=== PATIENT | female | born 1975 | race Hispanic/Latino ===

== ENCOUNTER → 2018-11-07 | Outpatient (CLI) | payer BC ==
--- NOTE | 2018-11-07 10:52 | MRI ---
Study: MRI of the Left Shoulder. Indication: LEFT SHOULDER PAIN Technique: Multiplanar, multi sequence MRI of the left shoulder was obtained without intravenous contrast. Comparison: None. Findings: Mild AC joint osteoarthritis. Type I acromion mild lateral downsloping. Small volume subacromial/subdeltoid bursal fluid. Supraspinatus and infraspinatus tendinosis. Subscapularis and teres minor tendons intact. Rotator cuff musculature normal without atrophy, fatty infiltration, or intramuscular edema. Long head biceps tendon intact. Circumferential labral truncation noted. No fluid-filled labral tear identified. No acute fracture. Minimal glenohumeral joint osteoarthritis. Thickening and edema inferior glenohumeral ligament which can be seen with adhesive capsulitis. Impression: Supraspinatus and infraspinatus tendinosis without fluid-filled tear. Circumferential labral truncation noted. Minimal glenohumeral joint osteoarthritis. Adhesive capsulitis. Mild AC joint osteoarthritis. Small-volume subacromial/subdeltoid bursal fluid. Electronically signed by: Jovon Tinoco MD 11/07/2018 10:51 AM [facility]
== END ==
LOC: MRI 09:11
PROVIDERS: ATTEND Family Medicine
DX: M19.012 Primary osteoarthritis, left shoulder (principal); M75.32 Calcific tendinitis of left shoulder; M25.512 Pain in left shoulder

== ENCOUNTER 2019-04-23 10:23 | Emergency (ER) | payer BC ==
[2019-04-23] MEDS ORDERED: KETOROLAC TROMETHAMINE INJ 30 MG/ML VIAL IV ONE (10:32)
[2019-04-23] MEDS ORDERED: TETANUS,DIPHTHERIA,PERTUSSIS 1 EA SYG IM ONE (10:33)
[2019-04-23 10:34] VITALS: TEMP 97.9
--- NOTE | 2019-04-23 10:36 | ED.PDOC ---
History of Present Illness - General Chief Complaint: Upper Extremity Injury Stated Complaint: L wrist injury Time Seen by Provider: 04/23/19 10:31 Source: patient Exam Limitations: no limitations - History of Present Illness Initial Comments: patient comes in with injury to her left knee and wrist after a fall. Patient was outside mowing her lawn and her dogs knocked her over and she landed on that left side causing severe pain and deformity to the wrist with some pain at the knee. She was able to weight-bear directly after the injury. Patient does have RA but was in normal health prior to this injury. She has had a partial hysterectomy. Occurred: just prior to arrival Pain - Upper Extremity: severe: Wrist, left Method of Injury: fell Improving Factors: nothing Worsening Factors: immobilization Allergies/Adverse Reactions: Allergies hibiclens Allergy (Uncoded 04/23/19 11:28) Home Medications: Ambulatory Orders Acetaminophen W/ Codeine [Tylenol W/ CODEINE #3] 1 ea PO QID PRN #15 04/23/19 Hydroxychloroquine Sulfate [Plaquenil] 200 mg PO DAILY 04/23/19 Vit W/ Ferrous Fumara [] 1 tab PO DAILY 04/23/19 Review of Systems - Review of Systems Constitutional: States: no symptoms reported. Denies: chills, fever EENTM: States: no symptoms reported Respiratory: States: no symptoms reported. Denies: cough, short of breath Cardiology: States: no symptoms reported. Denies: chest pain, palpitations Gastrointestinal/Abdominal: States: no symptoms reported Musculoskeletal: States: see HPI Family Medical History - Family History Mother Family History: No Known Living Status: Still Living Physical Exam - Physical Exam General Appearance: Alert, Anxious Eyes, Ears, Nose, Throat Exam: PERRL/EOMI Neck: non-tender Cardiovascular/Respiratory: regular rate, rhythm, no M/R/G, normal peripheral pulses, normal breath sounds, no respiratory distress Abdominal Exam: non-tender Elbow/Forearm Exam: normal inspection, bone tenderness - to proximal third of the radius with no deformity Wrist Exam: bone tenderness, deformity, ecchymosis, limited ROM Hand Exam: normal inspection, no evidence of injury Neuro/Tendon: normal sensation Mental Status: alert, oriented x 3 Progress - Results/Orders Results/Orders: Patient Name: RUI BENAVIDES Gender: Female Date of : 1975 Referring Physician: SAMI BOUCHER Organization: [facility] Accession Number: [id number] Requested Date: April 23, 2019 10:32 Report Status: Final Requested Procedure: 1 Procedure Description: Wrist,Left 2 Views Modality: CR Findings Reporting MD: Italo Borrero MD: Not available Dictation Time: Procedures Rn: Not available Project Developer Date: PROCEDURE: XR Left Wrist, 2 Views CLINICAL INDICATION: The patient is 43 years old and is Female; trauma grossly deformed wrist TECHNIQUE: Frontal and lateral views of the left wrist. COMPARISON: No relevant prior studies available. FINDINGS: BONES/JOINTS: There is positive ulnar variance. There is a mildly dorsally angulated, comminuted intra-articular acute mildly displaced fracture through the distal radius. The scapholunate distance is intact. The scaphoid is intact. The joint spaces are maintained. SOFT TISSUES: There is soft tissue swelling about the wrist. There is NO radiopaque foreign body. IMPRESSION: 1. There is soft tissue swelling about the wrist. 2. There is positive ulnar variance. Patient Name: RUI BENAVIDES Gender: Female Date of : 1975 Referring Physician: SAMI BOUCHER Organization: [facility] Accession Number: [id number] Requested Date: April 23, 2019 10:32 Report Status: Final Requested Procedure: 1 Procedure Description: Forearm,Left Modality: CR Findings Reporting MD: Italo Borrero MD: Not available Dictation Time: Procedures Rn: Not available Project Developer Date: PROCEDURE: XR Left Forearm, 2 Views CLINICAL INDICATION: The patient is 43 years old and is Female; trauma grossly deformed wrist TECHNIQUE: Frontal and lateral views of the left forearm. COMPARISON: No relevant prior studies available. FINDINGS: BONES/JOINTS: There is a mildly comminuted, impacted, mildly displaced intra-articular fracture through the distal radius, with mild dorsal angulation. No other fracture or dislocation identified in the LEFT forearm. SOFT TISSUES: No radiopaque foreign body. No significant soft tissue swelling noted. IMPRESSION: There is a mildly comminuted, impacted, mildly displaced intra-articular fracture through the distal radius, with mild dorsal angulation. Patient Name: RUI BENAVIDES Gender: Female Date of : 1975 Referring Physician: SAMI BOUCHER Organization: [facility] Accession Number: [id number] Requested Date: April 23, 2019 10:32 Report Status: Final Requested Procedure: 1 Procedure Description: Knee,Left 2 or More Views Modality: CR Findings Reporting MD: Italo Borrero Fellow MD: Not available Dictation Time: Procedures Rn: Not available Project Developer Date: PROCEDURE: XR Left Knee, 1 or 2 views CLINICAL INDICATION: The patient is 43 years old and is Female; trauma grossly deformed wrist TECHNIQUE: Frontal and/or lateral views of the left knee. COMPARISON: No relevant prior studies available. FINDINGS: BONES/JOINTS: No fracture or dislocation is identified in the LEFT knee. Tricompartmental joint spaces are maintained. There is no suprapatellar effusion. SOFT TISSUES: No radiopaque foreign body. No significant soft tissue swelling noted. IMPRESSION: No fracture or dislocation is identified in the LEFT knee. Electronically signed by: Italo Borrero MD 04/23/2019 12:01 PM Procedures - Splinting Left Wrist Hand-Made Type: orthoglass Splint: wrist Pre-Proc Neuro Vasc Exam: normal Post-Proc Neuro Vasc Exam: normal Departure - Departure Clinical Impression: Wrist fracture, left Qualifiers: Encounter type: initial encounter Fracture type: closed Qualified Code(s): S62.102A - Fracture of unspecified carpal bone, left wrist, initial encounter for closed fracture Disposition: Discharge to Home or Self Care Departure Forms: ED Discharge - Pt. Copy, Patient Portal Self Enrollment Instructions: DI for Arm Pain Diet: regular diet Referrals: Olu Cabral MD [Primary Care Provider] - 1-2 Weeks Prescriptions: Acetaminophen W/ Codeine [Tylenol W/ CODEINE #3] 1 ea PO QID PRN #15 PRN Reason: Pain Home Medications: Ambulatory Orders Acetaminophen W/ Codeine [Tylenol W/ CODEINE #3] 1 ea PO QID PRN #15 04/23/19 Hydroxychloroquine Sulfate [Plaquenil] 200 mg PO DAILY 04/23/19 Vit W/ Ferrous Fumara [] 1 tab PO DAILY 04/23/19 Additional Instructions: follow up with Dr. Scott (her ortho doctor) in am. Return to ER for severe pain, decreased sensation. Keep splint on until Ortho can evaluate.
[2019-04-23] MEDS ORDERED: MORPHINE SULFATE INJ 10 MG/ML VIAL IV ONE (11:16)
[2019-04-23] MEDS ORDERED: ONDANSETRON INJ 4 MG/2 ML VIAL ONE (11:21)
[2019-04-23] MEDS ORDERED: ONDANSETRON INJ 4 MG/2 ML VIAL IV ONE (11:25)
[2019-04-23] MEDS ORDERED: MIDAZOLAM INJ 5 MG/5 ML VIAL IV ONE (11:36)
--- NOTE | 2019-04-23 12:02 | RAD ---
PROCEDURE: XR Left Forearm, 2 Views CLINICAL INDICATION: The patient is 43 years old and is Female; trauma grossly deformed wrist TECHNIQUE: Frontal and lateral views of the left forearm. COMPARISON: No relevant prior studies available. FINDINGS: BONES/JOINTS: There is a mildly comminuted, impacted, mildly displaced intra-articular fracture through the distal radius, with mild dorsal angulation. No other fracture or dislocation identified in the LEFT forearm. SOFT TISSUES: No radiopaque foreign body. No significant soft tissue swelling noted. IMPRESSION: There is a mildly comminuted, impacted, mildly displaced intra-articular fracture through the distal radius, with mild dorsal angulation. Electronically signed by: Italo Borrero MD 04/23/2019 12:00 PM CDT
--- NOTE | 2019-04-23 12:03 | RAD ---
PROCEDURE: XR Left Knee, 1 or 2 views CLINICAL INDICATION: The patient is 43 years old and is Female; trauma grossly deformed wrist TECHNIQUE: Frontal and/or lateral views of the left knee. COMPARISON: No relevant prior studies available. FINDINGS: BONES/JOINTS: No fracture or dislocation is identified in the LEFT knee. Tricompartmental joint spaces are maintained. There is no suprapatellar effusion. SOFT TISSUES: No radiopaque foreign body. No significant soft tissue swelling noted. IMPRESSION: No fracture or dislocation is identified in the LEFT knee. Electronically signed by: Italo Borrero MD 04/23/2019 12:01 PM CDT
--- NOTE | 2019-04-23 12:05 | RAD ---
PROCEDURE: XR Left Wrist, 2 Views CLINICAL INDICATION: The patient is 43 years old and is Female; trauma grossly deformed wrist TECHNIQUE: Frontal and lateral views of the left wrist. COMPARISON: No relevant prior studies available. FINDINGS: BONES/JOINTS: There is positive ulnar variance. There is a mildly dorsally angulated, comminuted intra-articular acute mildly displaced fracture through the distal radius. The scapholunate distance is intact. The scaphoid is intact. The joint spaces are maintained. SOFT TISSUES: There is soft tissue swelling about the wrist. There is NO radiopaque foreign body. IMPRESSION: 1. There is soft tissue swelling about the wrist. 2. There is positive ulnar variance. Electronically signed by: Italo Borrero MD 04/23/2019 12:03 PM CDT
[2019-04-23 12:46] VITALS: O2SAT 97
--- NOTE | 2019-04-23 12:56 | RAD ---
EXAM DESCRIPTION: Wrist,Left 2 Views CLINICAL HISTORY: 43 years Female post reduction COMPARISON: None TECHNIQUE: AP, lateral and oblique views of the wrist are obtained. FINDINGS: OSSEOUS: There is an acute, comminuted, impacted and intra-articular fracture of the distal radius without significant change in one third with dorsal displacement and 157 degrees angulation at the fracture site resulting in persistent mild deformity. The joint spaces are preserved. No evidence of subluxation or dislocation. There is no evidence of degenerative osteophytosis or sclerosis. There is no evidence of marginal erosive changes to suggest an inflammatory arthritis. SOFT TISSUE: There is soft tissue swelling dorsal to the wrist. No evidence of significant soft tissue calcifications. No radiopaque foreign bodies. IMPRESSION: No significant change in the appearance and alignment of the comminuted distal radial fracture. Remainder of findings as described above. Electronically signed by: Dolores Melissa MD 04/23/2019 12:53 PM CDT
[2019-04-23 13:10] VITALS: BP 143/81
== END 2019-04-23 13:15 | disposition home or self-care (01) ==
LOC: ER 10:23
DX: S52.502A Unspecified fracture of the lower end of left radius, initial encounter for closed fracture (principal); S89.92XA Unspecified injury of left lower leg, initial encounter; M06.9 Rheumatoid arthritis, unspecified; Y93.H2 Activity, gardening and landscaping; Y92.007 Garden or yard of unspecified non-institutional (private) residence as the place of occurrence of the external cause; W54.1XXA Struck by dog, initial encounter; Z88.8 Allergy status to other drugs, medicaments and biological substances; Z23 Encounter for immunization
CPT/HCPCS: 73090; 73100; 73560; 90471; 90715; 94770; J1885; J2250; J2270; J2405

== ENCOUNTER → 2019-04-25 | Outpatient (CLI) | payer BC ==
--- NOTE | 2019-04-25 08:41 | RAD ---
EXAM DESCRIPTION: Wrist,Left 3 Views CLINICAL HISTORY: 43 years, Female, PAIN IN LEFT WRIST COMPARISON: None FINDINGS: Left wrist 3 x-ray views is positive for comminuted fracture of the distal radial epiphysis and metaphysis with slight impaction. The configuration of the fragments is stable compared to the previous study. Fracture line extends into the radiocarpal joint. Distal ulna appears intact. Intact bones of the carpus and metacarpals. Dorsal angulation of the articular surface of the distal radius measures 21 degrees on the present study compared to 29 degrees on previous exam. IMPRESSION: Comminuted fracture of the distal left radius with extension to the radiocarpal joint. Electronically signed by: Esteban Garcias MD 04/25/2019 8:39 AM CDT
== END ==
LOC: RAD 08:10
PROVIDERS: ATTEND Orthopaedic Surgery
DX: S52.502D Unspecified fracture of the lower end of left radius, subsequent encounter for closed fracture with routine healing (principal)

== ENCOUNTER 2019-04-26 05:44 | Day surgery (SDC) | payer BC ==
[2019-04-26] MEDS ORDERED: ceFAZolin SODIUM 1 GM VIAL ONE ×2 (05:46→06:43)
[2019-04-26] MEDS ORDERED: LACTATED RINGERS 1,000 ML ONE (05:46)
[2019-04-26] MEDS ORDERED: SODIUM CHL 0.9% 100ML MINI-BAG 100 ML IVPB ONE (05:47)
[2019-04-26] MEDS ORDERED: LIDOCAINE 1% 50 ML VIAL INJ ONE (06:43)
[2019-04-26] MEDS ORDERED: methylPREDNISolone ACETATE 80 MG/ML VIAL ONE (06:44)
[2019-04-26] MEDS ORDERED: VANCOMYCIN HCL INJ 1,000 MG VIAL IVPB ONE (06:44)
[2019-04-26] MEDS ORDERED: MIDAZOLAM INJ 5 MG/5 ML VIAL ONE (06:50)
[2019-04-26] MEDS ORDERED: fentaNYL CITRATE INJ 50 MCG/ML AMP ONE (06:50)
[2019-04-26] MEDS ORDERED: LACTATED RINGERS 1,000 ML BAG IV ONE (06:50)
[2019-04-26] MEDS ORDERED: KETAMINE HCL 100 MG/ML VIAL ONE (06:51)
[2019-04-26] MEDS ORDERED: DEXAMETHASONE INJ 10 MG/ML VIAL ONE (07:00)
[2019-04-26] MEDS ORDERED: raNITIdine HCL INJ 25 MG/ML VIAL ONE (07:00)
[2019-04-26] MEDS ORDERED: PROPOFOL 200 MG/20 ML VIAL IV ONE (07:00)
[2019-04-26] MEDS ORDERED: LIDOCAINE 1% 10 ML VIAL INJ ONE (07:00)
[2019-04-26] MEDS: BUPIVACAINE 0.25% W/EPI 50 ML VIAL INJ ONE ×2 (07:45→07:48)
[2019-04-26] MEDS ORDERED: HYDROmorphone HCL INJ 2 MG/ML VIAL ONE (08:52)
--- NOTE | 2019-04-26 09:51 | RAD ---
2 radiographs left wrist Indication: postop Comparison: April 25, 2019 Impression: Placement of 2 wires across the previous noted radial fracture noted. Splint material present. Electronically signed by: Jovon Tinoco MD 04/26/2019 9:49 AM CDT
[2019-04-26] MEDS ORDERED: HYDROcodone 5MG/APAP 325MG 1 EA TAB ONE (09:57)
--- NOTE | 2019-04-26 10:22 | RAD ---
Findings/ impression: One intraoperative fluoroscopic images of the left wrist. No hardware complication identified. Dose: Not documented mGy Time: 12 seconds Electronically signed by: Jai Gunn MD 04/26/2019 10:20 AM CDT
[2019-04-26 11:53] VITALS: BP 118/82; TEMP 97.1; O2SAT 98
--- NOTE | 2019-05-01 10:05 | OP ---
DATE OF PROCEDURE: 04/26/19 PREOPERATIVE DIAGNOSIS: 1. Left distal radius fracture. POSTOPERATIVE DIAGNOSIS: 1. Left distal radius fracture. PROCEDURE: 1. Closed reduction and percutaneous pinning. SURGEON: Tom Batista MD. COVERING MACHINE TENDER: Adalberto Rosa CST, SA-C. ANESTHESIA: General anesthesia. COMPLICATIONS: None. FINDINGS: Displaced distal radius fracture with radial styloid and intraarticular involvement. INDICATION: Ms. Montalvo has a history of a fall that occurred and at which time she had the acute onset of pain. After going to the Emergency Room, it was noted she had a distal radius fracture. She was splinted and sent to [place]. We discussed the findings on x-ray and we discussed the risks, benefits and alternatives to operative therapy. Informed consent was then obtained for closed reduction and percutaneous pinning. PROCEDURE: The patient was brought to the Operating Room and placed in supine position. General anesthesia was induced. The patient's warm as sterilely prepped and draped. Under fluoroscopic imaging, a reduction was performed and two percutaneous K-wires were placed from the radial styloid and proximal after reduction. The wrist was taken through a range of motion. The fracture was stable with no gross movement. After that, the wound sites were cleaned and the patient was placed in a cast that windowed over the pin sites. Sterile dressings were applied and she was taken to the Recovery Room. POSTOPERATIVE INSTRUCTIONS: She has been encouraged to do range of motion of the digits and has been given appropriate instructions on wound care. she will followup with us when she returns from her vacation. #[id number] MTDD
== END 2019-04-26 10:35 | disposition home or self-care (01) ==
LOC: AMB 05:44
PROVIDERS: ATTEND Orthopaedic Surgery
DX: S52.502A Unspecified fracture of the lower end of left radius, initial encounter for closed fracture (principal); R94.31 Abnormal electrocardiogram [ECG] [EKG]; Z88.8 Allergy status to other drugs, medicaments and biological substances; Z90.710 Acquired absence of both cervix and uterus
CPT/HCPCS: 01820; 25606; 36415; 64450; 73100; 76000; 80307; 81001; 85025; 87070; C1713; J0690; J1030; J1100; J1170; J2250; J2780; J3010; J3370; J3490; J7050; J7120

== ENCOUNTER → 2019-05-05 | Outpatient (CLI) | payer BC ==
--- NOTE | 2019-05-05 09:47 | RAD ---
EXAM DESCRIPTION: Wrist,Left 3 Views CLINICAL HISTORY: 43 years, Female, M25.532. Pain. COMPARISON: 04/26/2019 Technique: Frontal lateral and oblique views of the left wrist was obtained. FINDINGS/IMPRESSION: Images of the left wrist demonstrate overlying fiberglass splint which obscures fine bony detail. Percutaneous pin fixation of the left distal radius fracture is redemonstrated with stable osseous alignment. Mild progressive but incomplete healing of the distal radius fracture. Electronically signed by: Silvano Ruiz DO 05/05/2019 9:46 AM CDT
== END ==
LOC: RAD 08:15
PROVIDERS: ATTEND Orthopaedic Surgery
DX: S52.502D Unspecified fracture of the lower end of left radius, subsequent encounter for closed fracture with routine healing (principal)

== ENCOUNTER → 2019-05-19 | Outpatient (CLI) | payer BC ==
--- NOTE | 2019-05-19 08:44 | RAD ---
EXAM DESCRIPTION: Wrist,Left 3 Views CLINICAL HISTORY: 43 years, Female, S52.532A COMPARISON: Previous study May 05, 2019 FINDINGS: Left wrist 3 x-ray views is positive for fracture of the distal radius with two orthopedic pins in place. Cast material has been removed since the previous study. No change in alignment. Fracture lines are not as well seen consistent with developing bridging callus of healing fracture extends into the radiocarpal joint which appears mildly narrowed. Carpal relationships are well-maintained. Distal ulna appears intact. Normal proximal metacarpals. IMPRESSION: Fractured distal left radius with orthopedic pins in place. Electronically signed by: Esteban Garcias MD 05/19/2019 8:43 AM CDT
== END ==
LOC: RAD 08:04
PROVIDERS: ATTEND Orthopaedic Surgery
DX: S52.532D Colles' fracture of left radius, subsequent encounter for closed fracture with routine healing (principal)

== ENCOUNTER → 2019-06-02 | Outpatient (CLI) | payer BC ==
--- NOTE | 2019-06-02 16:31 | RAD ---
EXAM DESCRIPTION: Wrist,Left 3 Views CLINICAL HISTORY: 43 years Female, UNSPEC FRACTURE OF THE LOWER END OF LEFT RADIUS COMPARISON: None available. FINDINGS: The visualized bones are well-mineralized. Orthopedic pins are again noted traversing the fracture of the distal radius with no significant interval healing. Mild soft tissue swelling is identified. IMPRESSION: Orthopedic pins are again noted traversing the fracture of the distal radius with no significant interval healing. Electronically signed by: Joann Rosen MD 06/02/2019 4:29 PM CDT
== END ==
LOC: RAD 08:02
PROVIDERS: ATTEND Orthopaedic Surgery
DX: S52.502D Unspecified fracture of the lower end of left radius, subsequent encounter for closed fracture with routine healing (principal)

== ENCOUNTER → 2019-07-03 | Outpatient (CLI) | payer BC ==
--- NOTE | 2019-07-03 16:42 | RAD ---
EXAM DESCRIPTION: Wrist,Left 3 Views CLINICAL HISTORY: 44 years Female, PAIN IN LEFT WRIST COMPARISON: None. Findings: Similar ulnar styloid avulsion fracture. Similar minimally displaced intra-articular distal radius fracture. Slight interval callus formation. Stable alignment. No new fracture identified. The orthopedic pins have been removed. IMPRESSION: Slight interval healing of the distal left radius fracture. Stable alignment. Electronically signed by: Jai Gunn MD 07/03/2019 4:41 PM CDT
== END ==
LOC: RAD 08:46
PROVIDERS: ATTEND Orthopaedic Surgery
DX: S52.502D Unspecified fracture of the lower end of left radius, subsequent encounter for closed fracture with routine healing (principal)

== ENCOUNTER → 2019-08-21 | Outpatient (CLI) | payer BC, OTHER ==
--- NOTE | 2019-08-21 09:51 | RAD ---
EXAM DESCRIPTION: Wrist,Left 3 Views CLINICAL HISTORY: 44 years Female, Closed fracture of distal end of radius COMPARISON: July 03, 2019 Findings: Similar ulnar styloid avulsion fracture. Healing intra-articular distal radius fracture. Stable alignment. No new fracture identified. Carpal alignment is maintained. No focal soft tissue swelling. IMPRESSION: Healing intra-articular distal radius fracture. Electronically signed by: Jai Gunn MD 08/21/2019 9:49 AM [facility]
== END ==
LOC: RAD 09:15
PROVIDERS: ATTEND Orthopaedic Surgery
DX: S52.502D Unspecified fracture of the lower end of left radius, subsequent encounter for closed fracture with routine healing (principal)